=== PATIENT | male | born 1975 | race Caucasian/White ===

== ENCOUNTER → 2021-04-13 09:41 | Outpatient (CLI) | payer OTHER, SELFPAY ==
--- NOTE | ~2021-04-13 | XR_ITS ---
EXAMINATION: XR lumbar spine 2-3V EXAM DATE: 04/13/2021 11:00 INDICATION: M54.9 - Dorsalgia, unspecified. TECHNIQUE: Lumber spine frontal, lateral, lateral L5-S1 projections for interpretation. There is no prior study for comparison. FINDINGS: The vertebral bodies are aligned in the AP dimension. Vertebral body and disc heights are well-maintained. Mild lumbar facet arthropathy. Sacrum, sacroiliac joints, sacral arcuate lines are i ntact. Paraspinal soft tissue is unremarkable. No spondylolysis. IMPRESSION: Mild lumbar facet arthropathy. Reviewed, dictated and finalized at location A.
--- NOTE | ~2021-04-13 | XR_ITS ---
EXAMINATION: XR thoracic spine 3V EXAM DATE: 04/13/2021 11:00 INDICATION: M54.9 - Dorsalgia, unspecified . Mid and low back pain mostly left side. TECHNIQUE: Frontal and lateral projections of the thoracic spine as well as lateral swimmers projecti on of the upper thoracic spine for interpretation. There is no prior study for comparison. FINDINGS: The vertebral bodies are aligned in the AP dimension. Vertebral body and disc heights are well-maintained. There are no acute fractures identified. Paraspinal soft tissue is unremarkable. The re are no bony erosions identified. IMPRESSION: Unremarkable thoracic spine x-ray. Reviewed, dictated and finalized at location A.
--- NOTE | ~2021-04-13 | XR_ITS ---
XR_CERV2-3V_CR 04/13/2021 11:00 Indication: Cervicalgia Procedure: 3 views cervical spine Comparison: No prior studies for comparison. Findings: Vertebral body and disc heights are preserved. No fracture, subluxation or dislocation. No evidence for listhesis. No prevertebral soft tissue swelling. Lung apices are normal. Odontoid proces s within normal limits. Impression: 1: No significant abnormality of the cervical spine. Reviewed, dictated and finalized at location B. Impression: 1: No significant abnormality of the cervical spine.
== END ==
PROVIDERS: Visit Provider Nurse Practitioner Family
DX: M54.9 Dorsalgia, unspecified (principal); M54.2 Cervicalgia; M12.88 Other specific arthropathies, not elsewhere classified, other specified site
CPT/HCPCS: 72040; 72072; 72100

== ENCOUNTER → 2022-03-15 08:04 | Outpatient (CLI) | payer OTHER, SELFPAY ==
--- NOTE | ~2022-03-15 | CT_ITS ---
EXAMINATION: CT sinus wo con DATE: 03/15/2022 08:23 INDICATION: Chronic sinusitis. Sore throat for 5 months. TECHNIQUE: Computed tomography (CT) of the paranasal sinuses was performed without contrast. Iterativ e reconstruction technique was employed. Exam dose: 286.20 mGy-cm total exam DLP. COMPARISON: None FINDINGS: There is very prominent rightward deviation of nasal septum. There is asymmetric soft tissu e swelling of the left middle and inferior nasal turbinates. There is mild soft tissue thickening at the maxillary ostium bilaterally and mild soft tissue thicken ing of the left infundibulum. There is an approximate 8 x 14 mm mucus retention cyst or polyp along the inferolateral wall the righ t maxillary antrum. There is mild mucoperiosteal thickening at the floor of the left maxillary antrum . The paranasal sinuses otherwise are normally developed and aerated. The mastoid air cells are well-developed and aerated. Middle and inner ear apparatus appear normal bi laterally. IMPRESSION: Prominent rightward deviation of nasal septum Asymmetric soft tissue swelling of left nasal turbinates Mild mucoperiosteal thickening of the maxillary ostium bilaterally and at the left infundibulum 8 by 14 mm posterior inferolateral right maxillary mucous retention cyst Minimal mucosal periosteal thickening at the floor of the left maxillary sinus Reviewed, dictated and finalized at Location A. Reviewed, dictated and finalized at location B. IMPRESSION: Prominent rightward deviation of nasal septum Asymmetric soft tissue swelling of left nasal turbinates Mild mucoperiosteal thickening of the maxillary ostium bilaterally and at the l eft infundibulum 8 by 14 mm posterior inferolateral right maxillary mucous retention cyst Minimal mucosal periosteal thickening at the floor of the left maxillary sinus
== END ==
PROVIDERS: PCP Family Medicine
DX: J32.9 Chronic sinusitis, unspecified (principal); J34.2 Deviated nasal septum; J34.3 Hypertrophy of nasal turbinates; J32.0 Chronic maxillary sinusitis; J34.1 Cyst and mucocele of nose and nasal sinus
CPT/HCPCS: 70486

== ENCOUNTER → 2022-04-30 09:53 | Outpatient (CLI) | payer OTHER, SELFPAY ==
--- NOTE | ~2022-04-30 | CT_ITS ---
EXAMINATION: CT soft tissue neck w con DATE: 04/30/2022 10:20 INDICATION: Chronic sore throat. TECHNIQUE: Computed tomography (CT) of the neck was performed with 75 mL Omnipaque-300 intravenous co ntrast. Automated exposure control and iterative reconstruction technique were employed. The dose-jorge gth product was 408.77 mGy-cm. COMPARISON: Ultrasound soft tissue neck on 11/08/2017. FINDINGS: The thyroid gland is unremarkable. The submandibular and parotid glands are symmetric. There is n o cervical lymphadenopathy. There are no masses identified. The superior mediastinum is unremarka ble. The airway is unremarkable. Parapharyngeal and pre-glottic fat planes are preserved. No si gnificant arterial stenosis. The orbits are unremarkable. Retention cyst/polyp in the right maxill arlen sinus. Visualized lung parenchyma clear. No acute osseous abnormality or significant degenerati ve change. IMPRESSION: 1. Normal CT soft tissue neck findings. Reviewed, dictated and finalized at location K.
[2022-04-30 10:11] LABS: Estimated Glomerular Filt Rate > 60
== END ==
PROVIDERS: PCP Family Medicine
DX: J31.2 Chronic pharyngitis (principal)
CPT/HCPCS: 70491; Q9967

== ENCOUNTER → 2023-09-03 10:44 | Outpatient (CLI) | payer OTHER, SELFPAY ==
--- NOTE | ~2023-09-03 | XR_ITS ---
XR thoracic spine 3V DATE: 09/03/2023 11:10 INDICATION: Back pain TECHNIQUE: AP, lateral, swimmer views COMPARISON: 04/13/2021 thoracic spine FINDINGS: There is suggestion of osteopenia. There is mild upper thoracic levoscoliosis and minimal dextroscoliosis of the midthoracic spine. The thoracic pedicles are intact. Vertebral endplates interspaces are preserved. No fracture or bone dest ruction is detected. No paraspinal soft tissue thickening. IMPRESSION: Mild scoliosis Osteopenia Reviewed, dictated and finalized at location L. IMPRESSION: Mild scoliosis Osteopenia
== END ==
PROVIDERS: PCP Family Medicine; Visit Provider Nurse Practitioner Family
DX: M54.9 Dorsalgia, unspecified (principal); M41.84 Other forms of scoliosis, thoracic region; M85.89 Other specified disorders of bone density and structure, multiple sites
CPT/HCPCS: 72072

== ENCOUNTER 2023-09-06 10:23 | Outpatient (CLI) | payer OTHER, SELFPAY ==
--- NOTE | ~2023-09-06 | DEXA_ITS ---
Bone Density Report Name: ANA MCNAMARA Age: 48 Sex: Male Ethnicity: White Date of : 1975 Indication: osteopenia Referring Provider: JILL ESCOBAR Study: Bone densitometry was performed. Exam Date: September 06, 2023 Accession number: [id number] Bone Density: Region BMD T-score Z-score Classification AP Spine(L1-L4) 0.761 -3.0 -2.8 Osteoporosis Femoral Neck (Left) 0.700 -1.7 -1.0 Osteopenia Total Hip (Left) 0.920 -0.8 -0.5 Normal Femoral Neck (Right) 0.638 -2.1 -1.5 Osteopenia Total Hip (Right) 0.842 -1.3 -1.0 Osteopenia Femoral Neck Mean 0.669 -1.9 -1.3 Osteopenia Total Hip Mean 0.881 -1.0 -0.7 Normal World Health Organization criteria for BMD impression classify patients as: Normal (T-score at or above -1.0), Osteopenia (T-score between -1.0 and -2.5), or Osteoporosis (T-score at or below -2.5). 10-year Fracture Risk: FRAX not reported because: Man under age 50 Some T-score for Spine Total or Hip Total or Femoral Neck at or below -2.5 Clinical Information Provided by Patient: Has used the following medications: Vitamin D Patient maximum height was 71 No regular weight bearing exercise Does not regularly consume dairy products Drinks caffeinated beverages Impression: The patient's bone mass is below expected range for age, gender and ethnicity based on the Total Spine Z-score. Discussion: BONE DENSITY IS ABNORMALLY LOW FOR AGE, SEX, AND RACE. This patient's lowest Z-score is -2.0 or more below average for age, sex, and race at one or more sites. This may be due to low peak bone mass or to excessive bone loss. There may be some underlying disease or condition contributing to reduced bone mass. Further evaluation should be considered. There are no data relating bone density and fracture risk in younger men. The ISCD position is that the diagnosis of ?low bone mass? or ?osteoporosis? should not be made on densitometric criteria alone. WHO criteria only apply to men age > 50. The 10-year fracture risk calculated by FRAX is less than the threshold recommended by the National Osteoporosis Foundation (NOF) for treatment for men age > 50, and no threshold has been established for younger men. All treatment decisions require clinical judgment and consideration of individual patient factors, including patient preferences, comorbidities, previous drug use, risk factors not captured in the FRAX model (e.g., frailty, falls, vitamin D deficiency, increased bone turnover, interval significant decline in bone density) and possible under or overestimation of fracture risk by FRAX. Although pharmacologic therapy is sometimes indicated for patients with Z-scores in this range, there is little information available. A decision to treat should be based on a thorough consideration of benefits
== END 2023-09-06 10:24 | disposition home or self-care (01) ==
LOC: CHSIMG 10:24
PROVIDERS: PCP Family Medicine; Visit Provider Nurse Practitioner Family
DX: M85.88 Other specified disorders of bone density and structure, other site (principal); M81.0 Age-related osteoporosis without current pathological fracture
CPT/HCPCS: 77080

== ENCOUNTER → 2023-09-20 10:51 | Outpatient (CLI) | payer OTHER, SELFPAY ==
--- NOTE | ~2023-09-20 | XR_ITS ---
Clinical Indication: Chest pain PA and lateral views of the chest: Comparison: None Findings: The lungs are clear, without evidence of focal consolidation or pleural effusion. Cardiome diastinal silhouette is within normal limits. Bones and soft tissues are unremarkable. Impression: Normal chest. Reviewed, dictated and finalized at location . L BUFFER Impression: Normal chest.
== END ==
PROVIDERS: PCP Family Medicine; Visit Provider Family Medicine
DX: R07.81 Pleurodynia (principal)
CPT/HCPCS: 71046

== ENCOUNTER 2023-10-18 15:49 | Outpatient (CLI) | payer OTHER, SELFPAY ==
--- NOTE | ~2023-10-18 | CT_ITS ---
EXAMINATION: CT diagnostic chest wo con DATE: 10/18/2023 16:11 INDICATION: Osteoporosis. TECHNIQUE: Computed tomography (CT) of the chest was performed without intravenous contrast. The dose -length product was 266.60 mGy-cm. Automated exposure control and iterative reconstruction technique were employed. COMPARISON: DEXA scan dated 09/06/2023 FINDINGS: Heart size normal. No significant pleural or pericardial effusion. There is a partial left nephrectomy. No thoracic lymphadenopathy. No thoracic lymphadenopathy. There are groundglass opacitie s with associated nodules in the right upper lobe, largest measuring 7 mm, likely infectious/inflamma tory. No endobronchial lesions. No endobronchial lesions. No acute osseous abnormality. IMPRESSION: 1. Groundglass opacities and nodules of the right upper lobe, most likely infectious/inflammatory. Re commend follow-up CT in 3 months to ensure resolution. Reviewed, dictated and finalized at location A. A SERVICES SPECIALIST IMPRESSION: 1. Groundglass opacities and nodules of the right upper lobe, most likely infec tious/inflammatory. Recommend follow-up CT in 3 months to ensure resolution.
== END 2023-10-18 15:50 | disposition home or self-care (01) ==
PROVIDERS: PCP Family Medicine; Visit Provider Nurse Practitioner Family
DX: M81.0 Age-related osteoporosis without current pathological fracture (principal); R07.81 Pleurodynia; R91.8 Other nonspecific abnormal finding of lung field
CPT/HCPCS: 71250

== ENCOUNTER 2023-11-06 11:01 | Outpatient (CLI) | payer OTHER, SELFPAY ==
--- NOTE | ~2023-11-06 | XR_ITS ---
Clinical Indication: Chronic cough PA and lateral views of the chest: Comparison: 09/20/2023 Findings: The lungs are clear, without evidence of focal consolidation or pleural effusion. Cardiome diastinal silhouette is within normal limits. Bones and soft tissues are unremarkable. Impression: Normal chest. Reviewed, dictated and finalized at location . GING OPERATOR Impression: Normal chest.
== END 2023-11-06 11:02 | disposition home or self-care (01) ==
PROVIDERS: PCP Family Medicine; Visit Provider Nurse Practitioner Family
DX: R05.8 Other specified cough (principal); R05.3 Chronic cough
CPT/HCPCS: 71046

== ENCOUNTER 2024-01-16 09:49 | Outpatient (CLI) | payer OTHER, SELFPAY ==
--- NOTE | ~2024-01-16 | CT_ITS ---
CT Scan of the Chest without Contrast: Clinical Indication: Abnormal findings on prior imaging Technique: Contiguous sections were acquired throughout the chest without intravenous contrast. Dose reduction technique was used on this scan by utilizing automated exposure control and iterative recon struction technique. The dose-length product (DLP) was 219.04 mGy-cm. COMPARISON: 10/18/2023 Findings: There is no evidence of any significant mediastinal, hilar or axillary lymphadenopathy. The mediastin al soft tissues appear normal. There is no evidence of pleural or pericardial effusion. The lungs are clear. No pulmonary nodules or infiltrates are noted. Images through the upper abdomen reveal stable probable postoperative change or scarring at the lower pole the left kidney. Impression: No significant abnormalities seen. Previously noted right upper lobe pneumonia is resolved. Reviewed, dictated and finalized at [facility]. Impression: No significant abnormalities seen. Previously noted right upper lobe pneumonia is resolved.
== END 2024-01-16 09:50 | disposition home or self-care (01) ==
PROVIDERS: PCP Family Medicine; Visit Provider Nurse Practitioner Family
DX: R93.89 Abnormal findings on diagnostic imaging of other specified body structures (principal)
CPT/HCPCS: 71250

== ENCOUNTER 2024-02-18 13:02 | Outpatient (CLI) | payer OTHER, SELFPAY ==
[2024-02-18 11:52] LABS: CRP < 0.5 mg/dL (<1.0)
[2024-02-18 12:51] LABS: Erythrocyte Sedimentation Rate 2 mm/hr (0-20)
[2024-02-19 13:53] LABS: H pylori Ag Stool RESULT: Not Detected
[2024-02-24 15:09] LABS: Gliadin Gluten IgA <1.0 U/mL
[2024-02-24 18:22] LABS: Immunoglobulin A 238 mg/dL (47-310); TTG IGA AB <1.0 U/mL
[2024-02-25 10:33] LABS: Endomysial Ab (IgA) Screen NEGATIVE (NEGATIVE)
== END 2024-02-18 13:03 | disposition home or self-care (01) ==
PROVIDERS: PCP Family Medicine; Visit Provider Nurse Practitioner
DX: K52.9 Noninfective gastroenteritis and colitis, unspecified (principal); K63.9 Disease of intestine, unspecified
CPT/HCPCS: 36415; 82784; 85652; 86140; 86255; 86364; 87045; 87177; 87209; 87269; 87338; 87427; 87449

== ENCOUNTER 2024-03-10 06:04 | Day surgery (SDC) | payer OTHER, SELFPAY ==
[2024-02-19 13:48] VITALS: BMI 27.0
[2024-02-24 10:18] VITALS: BMI 27.3
--- NOTE | 2024-03-09 14:05 | PM.HPGS ---
History of Present Illness History of Present Illness Consent: Risks, benefits, and alternatives have been discussed and questions answered. Patient agrees to proceed with procedure. Chief complaint: Lft.upper quadrant pain,noninfective Narrative: Cezar Begum III is a 48 year old male referred ffor investigation of abdominal pain and change of bowel movements, abnormal CT of abd.A constant discomfort in left lower quadrant. Is not affected by bowel movements. He has taken antibiotics without benefit. Pain is worse when he is sitting but better by lying down or standing. Review of Systems Review of Systems: All systems reviewed & are unremarkable except as noted in HPI and below PMFSH Past Medical History Medical History Anxiety BMI 26.0-26.9,adult BMI 28.0-28.9,adult Elevated liver function tests History of kidney cancer Lung nodules Productive cough Surgical History Surgical History History of ankle surgery History of kidney surgery History of left inguinal hernia repair OA Dr. Sanches 10/09/18 Family History Family History Sibling Hypertension Father Hypertension COPD (chronic obstructive pulmonary disease) Acute myocardial infarction Emphysema lung Mother No problems noted. Sibling Hypertension Other Family history of cardiovascular disease Social History Social History Smoking status: Never smoker Second hand tobacco smoke exposure: Yes Alcohol intake: current Substance use: never Substance use type: does not use Lack of Transportation: No Lack of Food: Never True Current Housing: I Have Housing Concerned About Future Housing: No Difficulty Paying Gas/Electric Bills: No Difficulty Paying for Meds: No Currently Unemployed: No Education: High School Diploma/GED Difficulty w/ Childcare or Family Care: No Living arrangements: with family Occupation/Education: occupation 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[employer] Gender identity (if verbalized by the patient): Male Spiritual care concerns: No Meds Home Medications and Allergies Home Medications Medication Instructions Recorded Confirmed Type lisinopril 10 mg tablet 10 mg PO DAILY #90 tabs 06/14/23 03/10/24 Rx pravastatin 20 mg tablet 20 mg PO DAILY #90 tabs 01/21/24 03/10/24 Rx duloxetine 30 mg capsule,delayed 30 mg PO DAILY 02/24/24 03/10/24 History release hyoscyamine sulfate 0.125 mg 0.125 mg sublingual QID #120 tabs 03/02/24 03/10/24 Rx sublingual tablet (Levsin/SL) Allergies Allergy/AdvReac Type Severity Reaction Status Date / Time No Known Allergies Allergy Verified 03/10/24 06:43 Exam Resp: Auscultation: clear to auscultation bilaterally Cardio: Rate: regular rate Rhythm: regular rhythm GI: GI Palp: Yes Soft to palpation and Yes Tenderness to palpation present (GI) ( mild left LQ) Assessment and Plan Assessment and plan (1) Intermittent diarrhea: Code(s): R19.7 - Diarrhea, unspecified Status: Acute Assessment and Plan: Colonoscopy with possible biopsy or polypectomy or cautery or injection of substances.
[2024-03-10 06:44] VITALS: BP 111/85; PULSE 118; RESP 18; TEMP 36.6; O2SAT 97
[2024-03-10] MEDS: LACTATED RINGERS 1,000 ML 150 ML IV CONT (07:26)
--- NOTE | 2024-03-10 07:27 | WPDANESEPPF ---
Anes - Initial Pre Proc Eval Procedure: Operation Date: 03/10/24 08:00 Proposed Procedures p Diagnostic Colonoscopy - Ezra Colmenares MD Date/Time: 03/10/24 07:27 Surgeon: Ezra Colmenares MD Pre Op Diagnosis: Lft.upper quadrant pain,noninfective Patient Data Age: 48 Gender: M Height: 1.8 m Weight: 81.95 kg Last Vital Signs Temp 36.6 C 03/10/24 06:44 Pulse 118 H 03/10/24 06:44 Resp 18 03/10/24 06:44 BP 111/85 03/10/24 06:44 Pulse Ox 97 03/10/24 06:44 O2 Del Method Room Air 03/10/24 06:44 Allergies Allergy/AdvReac Type Severity Reaction Status Date / Time No Known Allergies Allergy Verified 03/10/24 06:43 Home Medications Medication Instructions Recorded Confirmed Type lisinopril 10 mg tablet 10 mg PO DAILY #90 tabs 06/14/23 03/10/24 Rx pravastatin 20 mg tablet 20 mg PO DAILY #90 tabs 01/21/24 03/10/24 Rx duloxetine 30 mg capsule,delayed 30 mg PO DAILY 02/24/24 03/10/24 History release hyoscyamine sulfate 0.125 mg 0.125 mg sublingual QID #120 tabs 03/02/24 03/10/24 Rx sublingual tablet (Levsin/SL) Patient hx anesthesia problems: none Family hx anesthesia problems: none Results Review: All pre-operative results and documents have been reviewed as part of the pre-operative evaluation. [facility] Past Medical History Medical History Anxiety BMI 26.0-26.9,adult BMI 28.0-28.9,adult Elevated liver function tests History of kidney cancer Lung nodules Productive cough Surgical History Surgical History History of ankle surgery History of kidney surgery History of left inguinal hernia repair OA Dr. Sanches 10/09/18 Family History Family History Sibling Hypertension Father Hypertension COPD (chronic obstructive pulmonary disease) Acute myocardial infarction Emphysema lung Mother No problems noted. Sibling Hypertension Other Family history of cardiovascular disease Social History Social History Smoking status: Never smoker Second hand tobacco smoke exposure: Yes Alcohol intake: current Substance use: never Substance use type: does not use Lack of Transportation: No Lack of Food: Never True Current Housing: I Have Housing Concerned About Future Housing: No Difficulty Paying Gas/Electric Bills: No Difficulty Paying for Meds: No Currently Unemployed: No Education: High School Diploma/GED Difficulty w/ Childcare or Family Care: No Living arrangements: with family Occupation/Education: occupation 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 Informed Consent: The patient's anesthetic plan and its attendant risks and benefits were discussed with the patient/family/POA. Questions were solicited and answers provided to the satisfaction of the patient/family/POA.
[2024-03-10] MEDS: SIMETHICONE ORAL SUSPENSION 20 MG/0.3 ML 30 ML BOTTLE 0.6 ML IRRIGATION (08:07)
[2024-03-10 08:15] VITALS: BP 88/63; PULSE 91; RESP 16; O2SAT 96
[2024-03-10 08:25] VITALS: BP 94/67; PULSE 86; RESP 16; O2SAT 98
--- NOTE | 2024-03-10 08:30 | WPDANESPN ---
Anes - Prog Note Post-Op Date/Time: 03/10/24 08:30 Cardiovascular status: normal Respiratory status: normal Airway patency: baseline Mental status: baseline Post-Op hydration status: normal Vital Signs: Last Vital Signs Temp 36.6 C 03/10/24 06:44 Pulse 91 03/10/24 08:15 Resp 16 03/10/24 08:15 BP 88/63 L 03/10/24 08:15 Pulse Ox 96 03/10/24 08:15 O2 Del Method Room Air 03/10/24 08:15 Pain Score (VAS): 0/10 I/O: Intake & Output 03/09/24 03/10/24 03/10/24 23:59 07:59 15:59 Intake Total 300 Balance 300 Patient Feedback: Patient satisfied with anesthetic care.
[2024-03-10 08:35] VITALS: BP 104/74; PULSE 80; RESP 16; O2SAT 97
== END 2024-03-10 08:48 | disposition home or self-care (01) ==
PROVIDERS: PCP Family Medicine; Visit Provider Internal Medicine Gastroenterology
PROC: 0DJD8ZZ Inspection of Lower Intestinal Tract, Via Natural or Artificial Opening Endoscopic (ICD-10-PCS; CPT 45378; principal; 2024-03-10 08:00)
DX: R19.4 Change in bowel habit (principal); D12.5 Benign neoplasm of sigmoid colon; R10.32 Left lower quadrant pain
CPT/HCPCS: 45385

== ENCOUNTER 2024-03-10 07:00 | Outpatient (NON) | payer OTHER, SELFPAY | END 2024-03-10 07:01 | disposition home or self-care (01) | LOC: ANHLAB 03-11 09:01 | PROVIDERS: PCP Family Medicine; Visit Provider Internal Medicine Gastroenterology | DX: R10.9 Unspecified abdominal pain (principal); K63.5 Polyp of colon | CPT/HCPCS: 88305 ==

== ENCOUNTER 2024-03-13 08:16 | Outpatient (CLI) | payer OTHER, SELFPAY ==
--- NOTE | ~2024-03-13 | XR_ITS ---
EXAMINATION: XR small bowel follow through DATE: 03/13/2024 09:39 INDICATION: Small bowel wall thickening in left abdomen. TECHNIQUE: Oral contrast was administered, and a time course of radiographs of the abdomen was obtain ed. Fluoroscopy of the small bowel was performed. Fluoroscopy exposure time was 0.1 minutes. The tota l number of images was 11. COMPARISON: CT abdomen and pelvis 11/30/2023 FINDINGS: There are no dilated loops of bowel. There is no abnormal mass or stricture. No fold thickening. Schultz sit time from the stomach to proximal colon was approximately 30 minutes. IMPRESSION: 1. Normal small bowel series. Reviewed, dictated and finalized at location A.
== END 2024-03-13 08:17 | disposition home or self-care (01) ==
PROVIDERS: PCP Family Medicine; Visit Provider Nurse Practitioner
DX: K52.9 Noninfective gastroenteritis and colitis, unspecified (principal)
CPT/HCPCS: 74250

== ENCOUNTER 2024-09-12 09:46 | Emergency (ER) | payer OTHER, SELFPAY ==
[2024-09-12 09:55] VITALS: BP 116/75; PULSE 103; RESP 19; TEMP 36.8; O2SAT 96
--- NOTE | 2024-09-12 10:02 | ED.URI ---
HPI - URI/Sore Throat General Chief Complaint: Upper Respiratory Infection Stated Complaint: Cough Time Seen by Provider: 09/12/24 10:12 Source: patient and RN notes reviewed Mode of arrival: ambulatory Limitations: no limitations History of Present Illness HPI Narrative: 49-year-old male presents with concern of for 2 week history of cough and chest congestion. Reports cough is productive. He reports he feels feverish, he has not taken his temperature. He take an [id number] medication without relief MD elicited complaint: cough and sore throat Related Data Home Medications Medication Instructions Recorded Confirmed duloxetine 30 mg capsule,delayed 30 mg PO DAILY 02/24/24 09/12/24 release Allergies Allergy/AdvReac Type Severity Reaction Status Date / Time No Known Allergies Allergy Verified 09/12/24 09:50 Review of Systems Review of Systems: CONSTITUTIONAL: Reports malaise, feeling feverish EYES: Denies visual changes, redness, or discharge. ENT: Reports rhinorrhea, congestion, and sore throat. CARDIOVASCULAR: Denies chest pain, palpitations, or edema. RESPIRATORY: Reports productive cough and chest congestion. Denies dyspnea. GASTROINTESTINAL: Denies abdominal pain, nausea, vomiting, diarrhea SKIN: Denies rash or itching. MUSCULOSKELETAL: Denies myalgia. NEUROLOGIC: Denies headache. All systems reviewed & are unremarkable except as noted in HPI and below PMFSH Past Medical History Medical History Anxiety BMI 26.0-26.9,adult BMI 28.0-28.9,adult Elevated liver function tests History of kidney cancer Lung nodules Productive cough Surgical History Surgical History History of ankle surgery History of kidney surgery History of left inguinal hernia repair OA Dr. Sanches 10/09/18 Family History Family History Sibling Hypertension Father Hypertension COPD (chronic obstructive pulmonary disease) Acute myocardial infarction Emphysema lung Mother No problems noted. Sibling Hypertension Other Family history of cardiovascular disease Social History Social History Smoking status: Never smoker Second hand tobacco smoke exposure: Yes Alcohol intake: current Substance use: never Substance use type: does not use Lack of Transportation: No Lack of Food: Never True Current Housing: I Have Housing Concerned About Future Housing: No Difficulty Paying Gas/Electric Bills: No Difficulty Paying for Meds: No Currently Unemployed: No Education: High School Diploma/GED Difficulty w/ Childcare or Family Care: No Living arrangements: with family Occupation/Education: occupation 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 There is no relevant family history pertinent to the presenting complaint Exam Narrative: GENERAL: Nontoxic-appearing, well-nourished, and in no acute distress. HEAD: Normocephalic EYES: PERRLA, conjunctivae clear ENT: Nares clear. Mucous membranes moist. TM pearly franks with dull light reflex bilaterally; no tragal tenderness. Oropharynx not erythematous without lesions. Tonsils not enlarged and without exudate, no drooling, no hoarseness, no trismus, uvula midline. NECK: Supple. No lymphadenopathy CHEST: Scattered wheeze and rhonchi noted, breath sounds equal. No rales, or stridor. No respiratory distress, speaks in full sentences. HEART: Regular rate and rhythm. No murmur heard. SKIN: Warm, dry, no rash. NEURO: Alert and oriented x3. PSYCH: Normal mood and affect Course Course Emergency Course: Patient is aware of diagnosis, understands and agrees to treatment plan. Anticipatory guidance given. Patient agrees to follow-up as directed and is aware of reasons to seek care at the emergency department. Portions of this record may have been created with voice recognition software Level of Care: Express Care Visit Vital Signs Vital signs: Vital Signs Temperature 98.2 F 09/12/24 09:55 Pulse Rate 103 H 09/12/24 09:55 Respiratory Rate 19 09/12/24 09:55 Blood Pressure 116/75 09/12/24 09:55 Pulse Oximetry 96 09/12/24 09:55 Oxygen Delivery Room Air 09/12/24 09:55 Temperature 98.2 F 09/12/24 09:55 Pulse Rate 103 H 09/12/24 09:55 Respiratory Rate 19 09/12/24 09:55 Blood Pressure 116/75 09/12/24 09:55 Pulse Oximetry 96 09/12/24 09:55 Oxygen Delivery Room Air 09/12/24 09:55 Reviewed. MDM - URI/Sore Throat MDM Narrative Medical decision making narrative: Differential diagnosis considered: Suh virus, strep pharyngitis, allergic rhinitis, upper respiratory tract infection, sinusitis, rhinosinusitis, nasopharyngitis. viral pharyngitis, otitis media, otitis externa, pneumonia, bronchitis, viral cough syndrome, viral syndrome, and influenza. Exam findings show no acute concerns or changes; patient is non-toxic appearing and is in no distress. Patient is appropriate for outpatient treatment and follow-up. Lab Data Attestation: I reviewed the patient's lab results. Critical Care Time Critical Care Time Critical Care Time: No Discharge Plan Discharge Clinical Impression: Lower respiratory tract infection Patient Disposition: Home, Self-Care Condition: Stable Instructions: Antibiotic Form, Acute Cough (ED) Additional Instructions: 1) Please follow-up with your primary care doctor in the next 1-2 days. 2) If you have any worsening of symptoms or any other urgent concerns please go to the ER. 3) Please take medications as prescribed and continue taking your home medications as usual. 4) Please read and follow information included in discharge instructions. Prescriptions: New albuterol sulfate 90 mcg/actuation HFA aerosol inhaler 2 puff INHALATION QID PRN (Reason: shortness of breath or wheezing) Qty: 8.5 0RF azithromycin [Zithromax Z-[place]] 250 mg tablet See Rx Instructions .ROUTE .COMPLEX Qty: 6 0RF Rx Instructions: take 500 mg today (day 1), then 250 mg for 4 days (days 2-5) methylprednisolone [Medrol ([place])] 4 mg tablets,dose pack See Rx Instructions .ROUTE .COMPLEX Qty: 21 0RF Rx Instructions: orally per package directions No Action pravastatin 20 mg tablet 20 mg PO DAILY Qty: 90 2RF lisinopril 10 mg tablet 10 mg PO DAILY Qty: 90 1RF duloxetine 30 mg capsule,delayed release(DR/EC) 30 mg PO DAILY Follow-up/Referrals: Alhaji Rico MD [Primary Care Provider] - Time of Disposition: 10:17
== END 2024-09-12 10:20 | disposition home or self-care (01) ==
PROVIDERS: Emergency Provider Nurse Practitioner; PCP Family Medicine
DX: J22 Unspecified acute lower respiratory infection (principal); Z85.528 Personal history of other malignant neoplasm of kidney
CPT/HCPCS: 99213; G0463